=== PATIENT | male | born 1930 | race Caucasian/White ===

== ENCOUNTER 2017-04-03 08:04 | Emergency (ER) | payer MEDICARE, OTHER ==
--- NOTE | 2017-04-03 08:40 | ER Document Report ---
ED Cardiac - General Chief Complaint: Chest Pain > 30 Stated Complaint: DEFIBRILLATOR CONCERN Time Seen by Provider: 04/03/17 08:27 Notes: The patient is an 86-year-old male who presents with feeling like his heart is beating and a quivering in the left side of his chest wall. He had a defibrillator placed 2 weeks ago at [facility] after a pacemaker was removed. He was asymptomatic until last night. He denies chest pain, shortness of breath, edema, fevers, syncope, nausea, vomiting, rash, numbness, tingling or back pain. TRAVEL OUTSIDE OF THE [place] IN LAST 30 DAYS: No - Related Data Allergies/Adverse Reactions: niacin Allergy (Verified 04/03/17 08:18) Home Medications: Current Home Medications Fenofibrate [Lipofen] 100 mg PO DAILY 04/03/17 [History] Lisinopril 5 mg PO DAILY 04/03/17 [History] Metoprolol Succinate 25 mg PO BID 04/03/17 [History] Simvastatin 40 mg PO DAILY 04/03/17 [History] Tamsulosin HCl 0.4 mg PO DAILY 04/03/17 [History] Warfarin Sodium 2 mg PO DAILY 04/03/17 [History] Past Medical History - General Information source: Patient - Social History Smoking Status: Unknown if Ever Smoked Family History: Reviewed & Not Pertinent Review of Systems - Review of Systems Notes: REVIEW OF SYSTEMS: CONSTITUTIONAL: -fevers, -chills EENT: -eye pain, -difficulty swallowing, -nasal congestion CARDIOVASCULAR:-chest pain, -syncope. RESPIRATORY: -cough, -SOB GASTROINTESTINAL: -abdominal pain, - nausea, -vomiting, -diarrhea GENITOURINARY: -dysuria, -hematuria MUSCULOSKELETAL: -back pain, -neck pain SKIN: -rash or skin lesions. HEMATOLOGIC: -easy bruising or bleeding. LYMPHATIC: -swollen, enlarged glands. NEUROLOGICAL: -altered mental status or loss of consciousness, -headache, - neurologic symptoms PSYCHIATRIC: -anxiety, -depression. ALL OTHER SYSTEMS REVIEWED AND NEGATIVE. Physical Exam - Vital signs Vitals: Temp Pulse Resp BP Pulse Ox 97.8 F 84 16 151/87 H 98 04/03/17 08:09 04/03/17 08:09 04/03/17 08:09 04/03/17 08:09 04/03/17 08:09 - Notes Notes: PHYSICAL EXAMINATION: GENERAL: Well-appearing, well-nourished and in no acute distress. HEAD: Atraumatic, normocephalic. EYES: Pupils equal round and reactive to light, extraocular movements intact, sclera anicteric, conjunctiva are normal. ENT: nares patent, oropharynx clear without exudates. Moist mucous membranes. NECK: Normal range of motion, supple without lymphadenopathy LUNGS: Breath sounds clear to auscultation bilaterally and equal. No wheezes rales or rhonchi. HEART: Regular rate and rhythm. Well-healed left upper chest wall surgical scar without erythema or tenderness. Bowing of left-sided chest wall with each beat of heart. ABDOMEN: Soft, nontender, normoactive bowel sounds. No guarding, no rebound. No masses appreciated. EXTREMITIES: Normal range of motion, no pitting or edema. No cyanosis. NEUROLOGICAL: Cranial nerves grossly intact. Normal speech, normal gait. Normal sensory and motor exams. PSYCH: Normal mood, normal affect. SKIN: Warm, Dry, normal turgor, no rashes or lesions noted. Course - Re-evaluation Re-evalutation: Patient presents with 2 days of feeling his left chest wall spasm every time his pacemaker fires. He does not have pain during these episodes. His pacemaker is working properly on the monitor and EKG and his chest x-ray does not show any evidence of defibrillator wire malfunction. No signs of infection around his defibrillator surgical site. The beating of his left chest wall is benign in nature and related to his heart beating. Instructed him to follow-up with his justice court deputy clerk when he returns to [place] this week. - Vital Signs Vital signs: Temp Pulse Resp BP Pulse Ox 97.8 F 84 17 161/88 H 95 04/03/17 08:09 04/03/17 08:30 04/03/17 09:15 04/03/17 09:15 04/03/17 09:15 - Diagnostic Test Radiology reviewed: Image reviewed, Reports reviewed Radiology results interpreted by me: CXR: NAD. Defibrillator and wires in place. - EKG Interpretation by Me Rate: Normal Rhythm: Other - Ventricular-paced rhythm When compared to previous EKG there are: Previous EKG unavailable Discharge - Discharge Clinical Impression: Cardiac defibrillator in place Condition: Stable Disposition: HOME, SELF-CARE Additional Instructions: Your x-ray shows that your defibrillator is in place and your wires are all intact. Your pacemaker/defibrillator is working properly. When you return back to [place], follow-up with your justice court deputy clerk for a recheck of your symptoms. Forms: Elevated Blood Pressure Referrals: ANIKA MURRELL MD [NO LOCAL MD] - Follow up as needed
--- NOTE | 2017-04-03 08:54 | RADIOLOGY REPORT (SQ) ---
EXAM DESCRIPTION: CHEST PA/LAT COMPLETED DATE/TIME: 04/03/2017 8:44 am REASON FOR STUDY: defibrillator malfunction? COMPARISON: None. EXAM PARAMETERS: NUMBER OF VIEWS: two views TECHNIQUE: Digital Frontal and Lateral radiographic views of the chest acquired. RADIATION DOSE: NA LIMITATIONS: none FINDINGS: LUNGS AND PLEURA: Multiple calcific pleural plaques. No focal infiltrates. No pleural effusion. No pneumothorax. MEDIASTINUM AND HILAR STRUCTURES: No masses or contour abnormalities. HEART AND VASCULAR STRUCTURES: Post sternotomy and CABG. No cardiomegaly. BONES: No acute findings. HARDWARE: Left-sided pacemaker/defibrillator OTHER: No other significant finding. IMPRESSION: No acute findings TECHNICAL DOCUMENTATION: JOB ID: [id number] [employer]- All Rights Reserved
[2017-04-03 09:18] VITALS: BP 161/88
--- NOTE | 2017-04-04 05:59 | EKG REPORT ---
SEVERITY:- ABNORMAL ECG - AFIB/FLUTTER AND VENTRICULAR-PACED RHYTHM : Confirmed by: Bhavani Mckeon MD 04-Apr-2017 05:58:09
== END 2017-04-03 09:30 | disposition home or self-care (01) ==
LOC: ER 08:04
DX: Z95.810 Presence of automatic (implantable) cardiac defibrillator (principal); R07.9 Chest pain, unspecified; Z79.899 Other long term (current) drug therapy
CPT/HCPCS: 71020; 93005; 93010; 99285

== ENCOUNTER 2017-04-04 09:32 | Emergency (ER) | payer MEDICARE, OTHER ==
[2017-04-04 09:50] VITALS: BP 164/89
--- NOTE | 2017-04-04 10:41 | ER Document Report ---
ED General - General Chief Complaint: Palpitations Stated Complaint: HEART ISSUES Time Seen by Provider: 04/04/17 09:55 Notes: Patient was seen here yesterday for palpitations with his newly implanted defibrillator. It appears that patient's defibrillator is also pacing his diaphragm. He states that he does not have any pain or discomfort with his sensation. He denies any shortness of breath or other problems. He states he does need a follow-up plan. Symptoms have been mild. They are constant. Symptoms get better when he lifts and stretches his neck. They get worse when he does not do that. There is no radiation of the symptoms. I called and spoke with Rene at [facility]. He states he will call the patient later today and arrange for an appointment to reprogram the pacemaker. He states he can do this right in the emergency department and he will have the patient meet them here either later this evening or tomorrow. TRAVEL OUTSIDE OF THE [place] IN LAST 30 DAYS: No - Related Data Allergies/Adverse Reactions: niacin Allergy (Verified 04/04/17 09:51) Past Medical History - Social History Smoking Status: Unknown if Ever Smoked Frequency of alcohol use: None Drug Abuse: None Family History: Reviewed & Not Pertinent Patient has suicidal ideation: No Patient has homicidal ideation: No - Past Medical History Cardiac Medical History: Reports: Hx Hypercholesterolemia, Hx Hypertension Renal/ Medical History: Denies: Hx Peritoneal Dialysis Past Surgical History: Reports: Hx Cardiac Surgery - bypass, defibrillator placed, Hx Orthopedic Surgery - bilateral knees Review of Systems - Review of Systems Cardiovascular: Palpitations. denies: Chest pain, Dyspnea, Syncope Respiratory: denies: Cough, Short of breath Physical Exam - Vital signs Vitals: Temp Pulse Resp BP Pulse Ox 98.6 F 89 16 164/89 H 98 04/04/17 09:44 04/04/17 09:44 04/04/17 09:44 04/04/17 09:44 04/04/17 09:44 Interpretation: Hypertensive - General General appearance: Appears well, Alert In distress: None - HEENT Head: Normocephalic, Atraumatic Eyes: Normal Pupils: PERRL - Respiratory Respiratory status: No respiratory distress Chest status: Nontender Breath sounds: Normal Chest palpation: Normal - Cardiovascular Rhythm: Regular Heart sounds: Normal auscultation Murmur: No - Extremities General upper extremity: Normal inspection, Nontender, Normal color, Normal ROM , Normal temperature General lower extremity: Normal inspection, Nontender, Normal color, Normal ROM , Normal temperature, Normal weight bearing. No: Gen's sign - Neurological Neuro grossly intact: Yes Cognition: Normal Orientation: AAOx4 Bobby Coma Scale Eye Opening: Spontaneous Bobby Coma Scale Verbal: Oriented Holstein Coma Scale Motor: Obeys Commands Holstein Coma Scale Total: 15 Speech: Normal Motor strength normal: LUE, RUE, LLE, RLE Sensory: Normal - Psychological Associated symptoms: Normal affect, Normal mood - Skin Skin Temperature: Warm Skin Moisture: Dry Skin Color: Normal Course - Vital Signs Vital signs: Temp Pulse Resp BP Pulse Ox 98.6 F 89 16 164/89 H 98 04/04/17 09:44 04/04/17 09:44 04/04/17 09:44 04/04/17 09:44 04/04/17 09:44 - EKG Interpretation by Me Rate: Normal Rhythm: Other - paced P Waves: Absent When compared to previous EKG there are: No significant change Discharge - Discharge Clinical Impression: Palpitations Condition: Stable Disposition: HOME, SELF-CARE Additional Instructions: A gentleman named Rene, from [facility], will give you a call later today to arrange follow-up. Forms: Elevated Blood Pressure
--- NOTE | 2017-04-04 13:11 | EKG REPORT ---
SEVERITY:- ABNORMAL ECG - AFIB/FLUT AND V-PACED COMPLEXES : Confirmed by: Tomas Barron MD 04-Apr-2017 13:09:38
== END 2017-04-04 10:42 | disposition home or self-care (01) ==
LOC: ER 09:32
DX: R00.2 Palpitations (principal)
CPT/HCPCS: 93005; 93010; 99284